=== PATIENT | female | born 1960 ===

== ENCOUNTER 2023-10-14 06:08 | Day surgery (SDC) | payer OTHER ==
[2023-10-14] MEDS ORDERED: fentaNYL CITRATE 50 MCG/ML AMPUL IV ONE (08:00)
[2023-10-14] MEDS ORDERED: DIPHENHYDRAMINE HCL 50 MG/ML VIAL 1ML IV ONE (08:00)
[2023-10-14] MEDS ORDERED: MIDAZOLAM HCL 2 MG/2 ML VIAL IV ONE (08:00)
== END 2023-10-14 11:25 | disposition home or self-care (01) ==
LOC: AMB-ENDOS 06:08 → CIR.AMB 13:45
PROVIDERS: ATTEND Surgery
DX: D12.3 Benign neoplasm of transverse colon (principal); K63.5 Polyp of colon; K57.30 Diverticulosis of large intestine without perforation or abscess without bleeding; K64.8 Other hemorrhoids